=== PATIENT | male | born 1995 | race Caucasian/White ===

== ENCOUNTER 2019-12-15 15:30 | Emergency (ER) | payer OTHER ==
[2019-12-15 15:49] VITALS: BP 172/83
[2019-12-15] MEDS ORDERED: DEXAMETHASONE SOD PHOS INJ 10 MG/1 ML VIAL IM ONE (16:16)
[2019-12-15] MEDS ORDERED: KETOROLAC TROMETHAMINE 60 MG/2 ML SDV IM ONE (16:16)
--- NOTE | 2019-12-15 16:20 | ER Document Report ---
HPI - HPI Time Seen by Provider: 12/15/19 16:07 Pain Level: 3 Context: Patient is a 24-year-old male who presents to the emergency department with a chief complaint of low back pain. Patient has a history of chronic back pain. He just recently got out of the and states that he had "informal physical therapy." He was playing golf today and exacerbated his back pain. The pain starts in his lower back and radiates down both legs. States that he will get numbness and tingling down both legs when his pain is exacerbated, but then goes away when his pain is under control. Denies any loss of bladder or bowel function. Denies any history of IV drug abuse. States he took ibuprofen earlier this morning. - CONSTITUTIONAL Constitutional: DENIES: Fever, Chills Past Medical History - Social History Smoking Status: Never Smoker Chew tobacco use (# tins/day): No Frequency of alcohol use: Occasional Drug Abuse: None Family History: Reviewed & Not Pertinent Patient has suicidal ideation: No Patient has homicidal ideation: No Past Surgical History: Reports: Hx Tonsillectomy Vertical Provider Document - CONSTITUTIONAL Agree With Documented VS: Yes Exam Limitations: No Limitations General Appearance: No Apparent Distress - HEENT HEENT: Atraumatic, Normocephalic, PERRLA - NECK Neck: Normal Inspection - RESPIRATORY Respiratory: No Respiratory Distress - CARDIOVASCULAR Cardiovascular: Regular Rate, Regular Rhythm Pulses: Normal: Radial - MUSCULOSKELETAL/EXTREMETIES Musculoskeletal/Extremeties: FROM - NEURO Level of Consciousness: Awake, Alert, Appropriate Motor/Sensory: No Motor Deficit, No Sensory Deficit - DERM Integumentary: Warm, Dry, No Rash Course - Re-evaluation Re-evalutation: 12/15/19 Differential diagnosis for back pain includes muscle spasm, muscle strain, slipped disc cauda equina syndrome, vertebral fracture, vertebral tumor, epidural abscess, pyelonephritis, or AAA. Based on history and exam, the most likely etiology of the patient's back pain is chronic. Emergent MRI is not indicated at this time because the patient does not have new weakness, or cauda equina syndrome. Patient does not have bladder or bowel dysfunction. Patient does not have history of IV drug use, therefore, I do not suspect an epidural abscess. Patient does not have recent weight loss or night sweats, and does not have a known history of cancer. Patient will receive Toradol and Decadron here in the emergency department. He will follow-up with primary care provider once he gets his new insurance. I advised him to do some back stretches. He is in agreement with this plan. Follow-up precautions were given. Verbal discharge instructions were given to the patient. They verbalized understanding. They are stable for discharge. - Vital Signs Vital signs: Temp Pulse Resp BP Pulse Ox 98.6 F 83 20 172/83 H 98 12/15/19 15:48 12/15/19 15:48 12/15/19 15:48 12/15/19 15:48 12/15/19 15:48 Discharge - Discharge Clinical Impression: Chronic back pain Qualifiers: Back pain location: low back pain Back pain laterality: bilateral Sciatica presence: with sciatica Sciatica laterality: bilateral sciatica Qualified Code(s): M54.42 - Lumbago with sciatica, left side Condition: Stable Disposition: HOME, SELF-CARE Instructions: Low Back Pain ([facility]) Additional Instructions: You were seen today in the emergency department for back pain. Your back pain is most consistent with sciatic nerve pain. You may take ibuprofen 600 mg and acetaminophen 1000 mg every 6 hours as needed for the pain. You are being sent home with a prescription for Robaxin. You can take it as directed. Try to take it an hour before bedtime to see how it makes you feel. If it makes you sleepy, please only take it before bed. You may also buy [id number] Aspercreme with lidocaine and apply to the area per box instructions. If you develop a fever greater than 100.4 F, lose bowel or bladder function, are unable to walk, or have any symptoms that are worrisome to you, please return to the emergency department.. Prescriptions: Methocarbamol [Robaxin 500 mg Tablet] 1,000 mg PO QHS PRN #20 tablet PRN Reason: Referrals: [facility] [Provider Group] - Follow up as needed [facility] [Provider Group] - Follow up as needed
== END 2019-12-15 17:15 | disposition home or self-care (01) ==
LOC: ER 15:30
DX: M54.42 Lumbago with sciatica, left side (principal); G89.29 Other chronic pain; M54.2 Cervicalgia
CPT/HCPCS: J1885; J1100; 96372; 99283